=== PATIENT | male | born 2000 | race Two or more races ===

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

== ENCOUNTER 2021-04-17 08:45 | Emergency (ER) | payer SELFPAY ==
[~2021-04-17] VITALS: Ht 172.7 cm; Wt 62.7 kg
[~2021-04-17 08:45] MED LIST: ERYT1OIN6 OP; HYDR-3164 PO
[2021-04-17 08:50] VITALS: BP 120/56
[2021-04-17 09:22] LABS: BILIRUBIN,URINE NEGATIVE (NEG); CLARITY,URINE CLEAR; COLOR,URINE YELLOW; NITRITE,URINE NEGATIVE (NEG); PROTEIN,URINE NEGATIVE (NEG-TRACE); UROBILINOGEN,URINE 0.2 mg/dL (0.2 mg/dL)
[2021-04-17 09:29] LABS: BACTERIA,URINE 0 /HPF (0-FEW); RBC,URINE >40 /HPF (0-2); WBC,URINE 0 /HPF (0-4)
[2021-04-17] MEDS ORDERED: IV RINGERS,LACTATED 1000ML 1,000 ML IV ONE (09:45)
[2021-04-17] MEDS ORDERED: ONDANSETRON PF 4 MG/2 ML VIAL. IVP ONE (09:45)
[2021-04-17] MEDS ORDERED: KETOROLAC 15 MG/ML VIAL. IVP ONE (09:45)
[2021-04-17 09:49] LABS: BASO % 0 % (0-3); EOS % 0 % (0-3); HEMATOCRIT 41.5 % (39.0-53.0); HEMOGLOBIN 13.8 g/dL (13.0-17.5); LYMPH # 0.8 x10^3/uL (1.0-4.8); LYMPH % 9 % (24-48); MEAN CORPUSCULAR HEMOGLOBIN 30 pg (25-35); MEAN CORPUSCULAR HGB CONC 33 g/dL (31-37); MEAN CORPUSCULAR VOLUME 89 fL (79-100); MONO # 0.5 x10^3/uL (0.0-1.1); MONO % 5 % (0-9); NEUT % 85 % (31-73); PLATELET COUNT 248 x10^3/uL (140-400); RED BLOOD COUNT 4.68 x10^6/uL (4.30-5.70); RED CELL DISTRIBUTION WIDTH 12.8 % (11.5-14.5); WHITE BLOOD COUNT 9.4 x10^3/uL (4.0-11.0)
[2021-04-17 09:57] LABS: CALCIUM 8.8 mg/dL (8.5-10.1); CREATININE 0.9 mg/dL (0.7-1.3); GFR 107.6
[2021-04-17 10:02] LABS: ALBUMIN/GLOBULIN RATIO 1.3 (1.0-1.7); TOTAL BILIRUBIN 0.5 mg/dL (0.2-1.0); TOTAL PROTEIN 7.1 g/dL (6.4-8.2)
--- NOTE | 2021-04-17 10:17 | RAD ---
INDICATION: Reason: L flank pain / Spl. Instructions: / History: COMPARISON: None. TECHNIQUE: Axial CT images were obtained through the abdomen and pelvis without intravenous contrast. One or more of the following individualized dose reduction techniques were utilized for this examinat ion: 1. Automated exposure control; 2. Adjustment of the mA and/or kV according to patient size; 3 . Use of iterative reconstruction technique. FINDINGS: Vascular: No abdominal aortic aneurysm. Hepatobiliary: No intrahepatic biliary duct dilation. Pancreas: Limited assessment secondary to lack of contrast. Spleen: Spleen unremarkable. Renal/Bladder: Moderate left-sided hydronephrosis and hydroureter with 3 mm left distal ureter stone. Urinary bladder wall is mildly prominent but minimal urine within at time of exam. No right-sided hy dronephrosis. There is some calcifications at the right kidney which could be from nonobstructive sto acosta. Gastrointestinal: No dilated loops of bowel to suggest obstruction. Appendix is partially seen with p ortions obscured by adjacent unopacified bowel loops. No definite adjacent inflammatory changes. IMPRESSION: * Left-sided hydronephrosis and hydroureter with distal ureter stone. Electronically signed by: Gómez Wolfe MD (04/17/2021 10:15 AM) [id number]
[2021-04-17] MEDS ORDERED: ONDA4TAB12 PO (10:39)
[2021-04-17] MEDS ORDERED: IBUP-1060 PO (10:39)
--- NOTE | 2021-04-17 10:41 | PHYS DOC ---
Past Medical History Past Medical History: No Pertinent History Past Surgical History: No Surgical History Additional Past Surgical Histo: dental surgery Smoking Status: Never Smoker Alcohol Use: None Drug Use: None General Adult EDM: Chief Complaint: BACK PAIN - NO INJURY HPI: HPI: Patient is a 21 year old male who presents with left-sided flank pain that began at about 0730. Patient rates his pain constant 10/10 without radiation. He reports the pain started gradually and is worse since onset. He denies any prior injury and has never had pain like this before. Patient reports associated multiple episodes of emesis. Patient denies fever, chills, abdominal pain, diarrhea, hematuria, dysuria. Review of Systems: Review of Systems: Constitutional: See HPI Eyes: Denies change in visual acuity. HENT: Denies nasal congestion or sore throat. Respiratory: Denies cough or shortness of breath. Cardiovascular: Denies chest pain or edema. GI: See HPI : See HPI Musculoskeletal: Denies back pain or joint pain. Integument: Denies rash or other skin lesions. Neurologic: Denies headache, focal weakness or sensory changes. Heart Score: C/O Chest Pain: No Current Medications: Current Medications Medications (Trade) Dose Ordered Sig/Gregg Start Time Stop Time Status Last Admin Dose Admin Ketorolac Tromethamine (Toradol 15mg Vial) 15 mg 1X ONCE 04/17/21 09:45 04/17/21 09:46 DC 04/17/21 09:46 15 MG Ondansetron HCl (Zofran) 4 mg 1X ONCE 04/17/21 09:45 04/17/21 09:46 DC 04/17/21 09:45 4 MG Ringer's Solution 1,000 ml @ 1,000 mls/hr 1X ONCE 04/17/21 09:45 04/17/21 10:44 04/17/21 09:51 1,000 MLS/HR Allergies: Allergies: Allergies Coded Allergies Type Severity Reaction Last Updated Verified No Known Drug Allergies 03/22/19 No Physical Exam: PE: Constitutional: Well developed, well nourished, no acute distress, non-toxic appearance. Cardiovascular: Heart rate regular rhythm, no murmur. Lungs & Thorax: Bilateral breath sounds clear to auscultation. Abdomen: Bowel sounds normal, soft, no tenderness, no masses, no pulsatile masses. Skin: Warm, dry, no erythema, no rash. Back: No step-off, no midline tenderness, no paraspinal tenderness, left-sided CVA tenderness appreciated. Extremities: No tenderness, no cyanosis, no clubbing, ROM intact, no edema. Neurologic: Alert and oriented x4, motor function grossly intact, sensory function grossly intact, no focal deficits noted. Current Patient Data: Labs: Laboratory Tests Test 04/17/21 09:08 04/17/21 09:42 Urine Collection Type Unknown Urine Color Yellow Urine Clarity Clear Urine pH 6.0 (<5.0-8.0) Urine Specific Hitchcock 1.020 (1.000-1.030) Urine Protein Negative mg/dL (NEG-TRACE) Urine Glucose (UA) Negative mg/dL (NEG) Urine Ketones (Stick) Negative mg/dL (NEG) Urine Blood Large (NEG) Urine Nitrite Negative (NEG) Urine Bilirubin Negative (NEG) Urine Urobilinogen Dipstick 0.2 mg/dL (0.2 mg/dL) Urine Leukocyte Esterase Negative (NEG) Urine RBC >40 /HPF (0-2) Urine WBC 0 /HPF (0-4) Urine Bacteria 0 /HPF (0-FEW) Urine Mucus Slight /LPF White Blood Count 9.4 x10^3/uL (4.0-11.0) Red Blood Count 4.68 x10^6/uL (4.30-5.70) Hemoglobin 13.8 g/dL (13.0-17.5) Hematocrit 41.5 % (39.0-53.0) Mean Corpuscular Volume 89 fL (79-100) Mean Corpuscular Hemoglobin 30 pg (25-35) Mean Corpuscular Hemoglobin Concent 33 g/dL (31-37) Red Cell Distribution Width 12.8 % (11.5-14.5) Platelet Count 248 x10^3/uL (140-400) Neutrophils (%) (Auto) 85 % (31-73) H Lymphocytes (%) (Auto) 9 % (24-48) L Monocytes (%) (Auto) 5 % (0-9) Eosinophils (%) (Auto) 0 % (0-3) Basophils (%) (Auto) 0 % (0-3) Neutrophils # (Auto) 8.0 x10^3/uL (1.8-7.7) H Lymphocytes # (Auto) 0.8 x10^3/uL (1.0-4.8) L Monocytes # (Auto) 0.5 x10^3/uL (0.0-1.1) Eosinophils # (Auto) 0.0 x10^3/uL (0.0-0.7) Basophils # (Auto) 0.0 x10^3/uL (0.0-0.2) Sodium Level 138 mmol/L (136-145) Potassium Level 4.0 mmol/L (3.5-5.1) Chloride Level 105 mmol/L (98-107) Carbon Dioxide Level 26 mmol/L (21-32) Anion Gap 7 (6-14) Blood Urea Nitrogen 15 mg/dL (8-26) Creatinine 0.9 mg/dL (0.7-1.3) Estimated GFR (Cockcroft-Gault) 107.6 BUN/Creatinine Ratio 17 (6-20) Glucose Level 95 mg/dL (70-99) Calcium Level 8.8 mg/dL (8.5-10.1) Total Bilirubin Pending Aspartate Amino Transferase (AST) Pending Alanine Aminotransferase (ALT) Pending Alkaline Phosphatase Pending Total Protein Pending Albumin Pending Albumin/Globulin Ratio Pending Lipase Pending Laboratory Tests 04/17/21 09:42 Laboratory Tests 04/17/21 09:42 Vital Signs: Vital Signs Date Time Temp Pulse Resp B/P (MAP) Pulse Ox O2 Delivery O2 Flow Rate FiO2 04/17/21 08:50 98.0 55 18 120/56 (77) 97 Room Air 98.0 Radiology/Procedures: Radiology/Procedures: PROCEDURE: CT ABDOMEN PELVIS WO CONTRAST INDICATION: Reason: L flank pain / Spl. Instructions: / History: COMPARISON: None. TECHNIQUE: Axial CT images were obtained through the abdomen and pelvis without intravenous contrast. One or more of the following individualized dose reduction techniques were utilized for this examination: 1. Automated exposure control; 2. Adjustment of the mA and/or kV according to patient size; 3. Use of iterative reconstruction technique. FINDINGS: Vascular: No abdominal aortic aneurysm. Hepatobiliary: No intrahepatic biliary duct dilation. Pancreas: Limited assessment secondary to lack of contrast. Spleen: Spleen unremarkable. Renal/Bladder: Moderate left-sided hydronephrosis and hydroureter with 3 mm left distal ureter stone. Urinary bladder wall is mildly prominent but minimal urine within at time of exam. No right-sided hydronephrosis. There is some calcifications at the right kidney which could be from nonobstructive stones. Gastrointestinal: No dilated loops of bowel to suggest obstruction. Appendix is partially seen with portions obscured by adjacent unopacified bowel loops. No definite adjacent inflammatory changes. IMPRESSION: * Left-sided hydronephrosis and hydroureter with distal ureter stone. Electronically signed by: Gómez Wolfe MD (04/17/2021 10:15 AM) [id number] Course & Med Decision Making: Course & Med Decision Making Pertinent Labs and Imaging studies reviewed. (See chart for details) Work-up today will include urinalysis, blood work, CT abdomen pelvis for renal stone versus UTI. Patient lab work unremarkable, however CT shows 3 mm stone in distal ureter. Patient informed of findings. He is instructed to take ibuprofen up to 800 mg every 6 hours and drink plenty of fluids to help pass the stone. He is instructed to return to the department for unmanageable pain at home or signs of infection. Patient understands and is agreeable to discharge plan. Dragon Disclaimer: Dragon Disclaimer: This electronic medical record was generated, in whole or in part, using a voice recognition dictation system. Departure Departure Impression: Primary Impression: Kidney stone on left side Disposition: 01 HOME / SELF CARE / HOMELESS Condition: STABLE Referrals: NO PCP (PCP) Patient Instructions: Diet for Kidney Stones, Hydronephrosis, Kidney Stones, [id number] Additional Instructions: [facility] Department of Urology [address] [place] [id number] Due to the size of your kidney stone, it likely will pass on its own. Drink plenty of water (1 gallon) each day to help encourage the stone to pass. You were also prescribed 800 mg ibuprofen as well as Zofran for pain and nausea. Pl ease return to the emergency department if you develop signs of infection (fever, painful urination) or if your pain becomes unmanageable at home. You may follow-up with urology in about a week for evaluation of the swollen kidney (hydronephrosis) if your pain persists. Scripts Ondansetron (ONDANSETRON ODT) 4 Mg Tab.rapdis 1 TAB PO PRN Q6-8HRS, #20 TAB Prov: PRINCE MONTGOMERY 04/17/21 Ibuprofen (IBUPROFEN) 800 Mg Tablet 800 MG PO PRN Q6HRS PRN for INFLAMMATION, #30 TAB Prov: PRINCE MONTGOMERY 04/17/21 PRINCE MONTGOMERY Apr 17, 2021 10:40
== END 2021-04-17 10:50 | disposition home or self-care (01) ==
LOC: ER 08:45
DX: N13.2 Hydronephrosis with renal and ureteral calculous obstruction (principal)
CPT/HCPCS: 36415; 74176; 80053; 81001; 83690; 85025; 96361; 96374; 96375; 99284; J1885; J2405; J7120